=== PATIENT | male | born 1970 | race Caucasian/White ===

== ENCOUNTER 2017-02-06 17:49 | Emergency (ER) | payer SELFPAY ==
[~2017-02-06] VITALS: Ht 180.3 cm; Wt 86.2 kg
--- NOTE | 2017-02-06 17:53 | Emergency Room Report ---
History of Present Illness General Source: EMS Present Illness HPI 46YOM BIB[address]S from street, bystander called 911 Patient sitting on curb, intoxicated - found by Reportedly couldnt/didnt want to take home because "there might be something else going on." Patient not providing HPI currently EMS deny trauma Patient intermittently speaking en route, now asleep Vitals, glucose stable on scene Allergies: Coded Allergies: No Known Allergies (Unverified , 02/06/17) Patient History Past Medical History: unable to obtain Past Surgical History: unable to obtain Pertinent Family History: unable to obtain Social History: Reports: alcohol use Immunizations: UTD Reviewed Nursing Documentation: PMH: Agreed, PSxH: Agreed Review of Systems All Other Systems: negative except mentioned in HPI - Limited d/t ETOH intox Physical Exam Sp02 EP Interpretation: reviewed, normal General Appearance: normal inspection, lethargic, other - +AOB Head: normocephalic, atraumatic Eyes: bilateral eye other - Pupils sluggish ENT: normal ENT inspection, hearing grossly normal, normal voice, other - Blood in mouth, no obvious tongue lacerations Neck: normal inspection, full range of motion, supple, no bony tend Respiratory: normal inspection, lungs clear, normal breath sounds, no respiratory distress, no retraction, no wheezing Cardiovascular #1: regular rate, rhythm, no edema Gastrointestinal: normal inspection, normal bowel sounds, non tender, soft, no guarding, no hernia Genitourinary: no CVA tenderness Musculoskeletal: normal inspection, back normal, normal range of motion, Magnolia' s Sign negative Neurologic: normal inspection, alert, responsive, speech normal Psychiatric: normal inspection, judgement/insight normal, mood/affect normal Skin: normal inspection, normal color, no rash Medical Decision Making Diagnostic Impression: Primary Impression: Acute alcohol intoxication Qualified Codes: F10.929 - Alcohol use, unspecified with intoxication, unspecified ER Course VSS. Afebrile ETOH level 624 No other significant metabolic abnormalities Patient remained stable in the ER. Patient signed out to Dr. Tapia at 10 PM. Reevaluation pending sobriety Status: improved DAMION POON M.D. Feb 06, 2017 17:53
[2017-02-06 17:56] VITALS: BP 121/81
[2017-02-06 18:21] LABS: BASOPHILS % (AUTO) 1.7 % (0.0-2.0); LYMPHOCYTES % (AUTO) 40.3 % (20.0-45.0); MEAN CORPUSCULAR HEMOGLOBIN 33.8 PG (27.0-31.0); MEAN CORPUSCULAR HGB CONC 32.8 G/DL (32.0-36.0); MEAN CORPUSCULAR VOLUME 103 FL (80-99); MONOCYTES % (AUTO) 9.3 % (1.0-10.0); NEUTROPHILS % (AUTO) 46.7 % (45.0-75.0); PLATELET COUNT 206 K/UL (150-450); RED BLOOD COUNT 4.09 M/UL (4.70-6.10); WHITE BLOOD COUNT 5.3 K/UL (4.8-10.8)
[2017-02-06 18:38] LABS: ALANINE AMINOTRANSFERASE 17 U/L (12-78); ALBUMIN/GLOBULIN RATIO 0.9 (1.0-2.7); ANION GAP 9 mmol/L (5-15); ASPARTATE AMINO TRANSFERASE 26 U/L (15-37); CARBON DIOXIDE 29 MMOL/L (21-32); CHLORIDE 105 MMOL/L (98-107); CREATININE 0.9 MG/DL (0.55-1.30); GLOMERULAR FILTRATION RATE > 60 mL/min (>60); POTASSIUM 3.3 MMOL/L (3.5-5.1); SODIUM 143 MMOL/L (136-145); TOTAL PROTEIN 6.8 G/DL (6.4-8.2)
[2017-02-06 18:39] LABS: ALCOHOL 624 mg/dL
[2017-02-06 20:00] VITALS: BP 116/54
[2017-02-06 22:00] VITALS: BP 112/60
[2017-02-07] VITALS: BP 107/72
[2017-02-07 02:09] VITALS: BP 101/68
[2017-02-07] MEDS ORDERED: HYDROCODON-ACE1 EA15 ORAL (03:15)
[2017-02-07 04:15] VITALS: BP 119/72
--- NOTE | 2017-02-07 09:17 | Diagnostic Imaging Report ---
History: Pain. Technique: Frontal, lateral, views of the right humerus are provided. Comparison: No prior study is available for comparison. Findings: Patient is status post plate and screw fixation of the proximal and mid right humerus with extensive heterotopic bone formation surrounding severely comminuted chronic fracture of the right humerus. Bony mineralization appears reduced. No definite evidence of hardware complication or acute fracture. Impression: Status post plate and screw fixation of chronic comminuted humeral fractures with evidence of heterotopic bone formation. No definite evidence of hardware complication or acute fracture. Bony mineralization is reduced.
== END 2017-02-07 04:20 | disposition home or self-care (01) ==
LOC: EDBD 17:49 → EMR 19:44
DX: F10.129 Alcohol abuse with intoxication, unspecified (principal)
CPT/HCPCS: 36415; 73060; 80053; 85025; 99284; G0480; 80329

== ENCOUNTER 2017-02-13 13:47 | Emergency (ER) | payer OTHER ==
[~2017-02-13] VITALS: Ht 177.8 cm; Wt 65.8 kg
[~2017-02-13 13:47] MED LIST: HYDROCODON-ACE1 EA15 ORAL
[2017-02-13] MEDS ORDERED: UNOBMED (14:00)
[2017-02-13 14:10] VITALS: BP 119/76
--- NOTE | 2017-02-13 14:55 | Emergency Room Report ---
History of Present Illness General Chief Complaint: Medical Clearance Source: Patient (Nevaeh Dupree) Present Illness HPI 46-year-old male presents to the emergency department brought by police for suicidal threat to his . Patient states that he has been drinking vodka today and he had an argument with his and he picked up a knife and said he was going to kill himself. Patient reports history of depression with multiple failed SSRI medications. Patient states that he has not taken any medication for depression in over 8 years. He reports that he has been taking Ativan to calm himself down" patient reports past medical history of chronic pain in the right shoulder following surgery status post fractures. Patient states that he drinks alcohol regularly as a form of self administered pain management. Patient states that he is currently in between medical providers and he states his pain is currently managed. Patient reports one previous suicide attempt when he found out that his first cheated on him. Patient also reports previous psychiatric hospitalization because. She denies hallucinations, delusions, lamin, homicidal ideations. Patient denies history of TBI, abuse, or witnessing horrific events. Patient denies illicit drug use other than intermittent marijuana. 8/10 in severity right shoulder pain, no trauma. Denies CP, Palpitations, LOC, AMS, dizziness, Changes in Vision, Sensation, paresthesias, or a sudden severe headache. (Nevaeh Dupree) Allergies: Coded Allergies: OPIOIDS - MORPHINE ANALOGUES (Verified Allergy, Mild, Itching, 02/13/17) Uncoded Allergies: OPIOIDS (Allergy, Mild, 02/13/17) itchiness Patient History Past Medical History: see triage record Past Surgical History: none Pertinent Family History: none Social History: Reports: alcohol use, drug use - thc Reviewed Nursing Documentation: PMH: Agreed, PSxH: Agreed (Nevaeh Dupree) Nursing Documentation-PMH Hx Hypertension: Yes History Of Psychiatric Problem: Yes - DEPRESSION (Nevaeh Dupree) Review of Systems All Other Systems: negative except mentioned in HPI (Nevaeh Dupree) Physical Exam Vital Signs Date Time Temp Pulse Resp B/P (MAP) Pulse Ox O2 Delivery O2 Flow Rate FiO2 02/13/17 13:55 Room Air Sp02 EP Interpretation: reviewed, normal General Appearance: no apparent distress, alert, GCS 15, non-toxic Head: normocephalic, atraumatic Eyes: bilateral eye normal inspection, bilateral eye PERRL ENT: hearing grossly normal, normal voice, TMs + canals normal, moist mucus membranes Neck: full range of motion, supple/symm/no masses Respiratory: lungs clear, normal breath sounds, speaking full sentences Cardiovascular #1: regular rate, rhythm, no edema, normal capillary refill Gastrointestinal: normal bowel sounds, non tender, soft, no guarding, no rebound Rectal: deferred Musculoskeletal: back normal, gait/station normal, normal range of motion, tender - TTP to the Right shoulder, pain with ROM , however has FROM, no erythema, surgical scar noted. Neurologic: alert, oriented x3, responsive, motor strength/tone normal, sensory intact, normal gait, speech normal, no pronator Psychiatric: no delusions, depressed affect, other - judgement and memory unable to assess as pt. is clinically intoxicated. Skin: normal color, no rash, warm/dry, well hydrated (Nevaeh Dupree P.ABel) Medical Decision Making PA Attestation Dr. ordonez is my supervising Physician whom patient management has been discussed with. (Nevaeh Dupree P.ABel) Diagnostic Impression: Primary Impression: Behavioral disorder Additional Impressions: Alcohol intoxication Qualified Codes: F10.920 - Alcohol use, unspecified with intoxication, uncomplicated Suicidal behavior with attempted self-injury ER Course 46-year-old male presents to the emergency department brought by police for suicidal threat to his . Patient states that he has been drinking vodka today and he had an argument with his and he picked up a knife and said he was going to kill himself. Patient reports history of depression with multiple failed SSRI medications. Patient states that he has not taken any medication for depression in over 8 years. He reports that he has been taking Ativan to calm himself down" patient reports past medical history of chronic pain in the right shoulder following surgery status post fractures. Patient states that he drinks alcohol regularly as a form of self administered pain management. Patient states that he is currently in between medical providers and he states his pain is currently managed. Patient reports one previous suicide attempt when he found out that his first cheated on him. Patient also reports previous psychiatric hospitalization because. She denies hallucinations, delusions, lamin, homicidal ideations. Patient denies history of TBI, abuse, or witnessing horrific events. Patient denies illicit drug use other than intermittent marijuana. 8/10 in severity right shoulder pain, no trauma. Denies CP, Palpitations, LOC, AMS, dizziness, Changes in Vision, Sensation, paresthesias, or a sudden severe headache. Patient was placed on 5150 hold by [employer] Ddx considered but are not limited to OD, SI/HI, psychosis, UTI, intoxication just to name a few. Vital signs: are WNL, pt. is afebrile H&PE are most consistent with behavioral/mental health issue ORDERS: -CBC, CMP: Unremarkable -UA: negative for infection see results attached. -UDS: POSITIVE for BENZO's -Salicylates and Acetaminophen - no acute intoxication. - Serum ETOH: 383 ED INTERVENTIONS: - 1 L normal saline bolus -Sitter at bedside has been ordered -Motrin PO DISPOSITION: Pt. is medically cleared currently awaiting PET team evaluation for their psychiatric transfer. Labs Test 02/13/17 14:40 White Blood Count 3.1 K/UL (4.8-10.8) Red Blood Count 4.57 M/UL (4.70-6.10) Hemoglobin 15.2 G/DL (14.2-18.0) Hematocrit 46.0 % (42.0-52.0) Mean Corpuscular Volume 101 FL (80-99) Mean Corpuscular Hemoglobin 33.3 PG (27.0-31.0) Mean Corpuscular Hemoglobin Concent 33.1 G/DL (32.0-36.0) Red Cell Distribution Width 12.8 % (11.6-14.8) Platelet Count 166 K/UL (150-450) Mean Platelet Volume 5.8 FL (6.5-10.1) Neutrophils (%) (Auto) % (45.0-75.0) Lymphocytes (%) (Auto) % (20.0-45.0) Monocytes (%) (Auto) % (1.0-10.0) Eosinophils (%) (Auto) % (0.0-3.0) Basophils (%) (Auto) % (0.0-2.0) Differential Total Cells Counted 100 Neutrophils % (Manual) 50 % (45-75) Lymphocytes % (Manual) 44 % (20-45) Monocytes % (Manual) 4 % (1-10) Eosinophils % (Manual) 2 % (0-3) Basophils % (Manual) 0 % (0-2) Band Neutrophils 0 % (0-8) Platelet Estimate Adequate Platelet Morphology Normal Red Blood Cell Morphology Normal Urine Color Pale yellow Urine Appearance Clear Urine pH 8 (4.5-8.0) Urine Specific Stigler 1.020 (1.005-1.035) Urine Protein Negative (NEGATIVE) Urine Glucose (UA) Negative (NEGATIVE) Urine Ketones Negative (NEGATIVE) Urine Occult Blood Negative (NEGATIVE) Urine Nitrite Negative (NEGATIVE) Urine Bilirubin Negative (NEGATIVE) Urine Urobilinogen Normal MG/DL (0.0-1.0) Urine Leukocyte Esterase Negative (NEGATIVE) Sodium Level 146 MMOL/L (136-145) Potassium Level 3.7 MMOL/L (3.5-5.1) Chloride Level 107 MMOL/L (98-107) Carbon Dioxide Level 29 MMOL/L (21-32) Anion Gap 10 mmol/L (5-15) Blood Urea Nitrogen 5 mg/dL (7-18) Creatinine 0.8 MG/DL (0.55-1.30) Estimat Glomerular Filtration Rate > 60 mL/min (>60) Glucose Level 90 MG/DL (74-106) Calcium Level 8.5 MG/DL (8.5-10.1) Total Bilirubin 0.8 MG/DL (0.2-1.0) Aspartate Amino Transf (AST/SGOT) 55 U/L (15-37) Alanine Aminotransferase (ALT/SGPT) 22 U/L (12-78) Alkaline Phosphatase 107 U/L (46-116) Total Protein 7.2 G/DL (6.4-8.2) Albumin 3.5 G/DL (3.4-5.0) Globulin 3.7 g/dL Albumin/Globulin Ratio 0.9 (1.0-2.7) Salicylates Level < 2.0 ug/mL (2.8-20) Urine Opiates Screen Negative (NEGATIVE) Acetaminophen Level < 10 MCG/ML (10-30) Urine Barbiturates Screen Negative (NEGATIVE) Phencyclidine (PCP) Screen Negative (NEGATIVE) Urine Amphetamines Screen Negative (NEGATIVE) Urine Benzodiazepines Screen Positive (NEGATIVE) Urine Cocaine Screen Negative (NEGATIVE) Urine Marijuana (THC) Screen Negative (NEGATIVE) Serum Alcohol 383 mg/dL (Nevaeh Dupree) ER Course Patient presents with alcohol intoxication and suicidal thoughts. He has depression also. He is placed into a 50 by police. He slept through the night without any problem. I gave him Librium for alcohol withdrawal. Awaiting psychiatric placement. (THEO CONWAY M.D.) ER Course The patient was noted to have improvement in alcohol intoxication. Patient was given Librium for withdrawal. The patient was discussed with [facility] [place] by staff and he was accepted as transfer for higher level of care. (Kris Yañez) Last Vital Signs Date Time Temp Pulse Resp B/P (MAP) Pulse Ox O2 Delivery O2 Flow Rate FiO2 02/13/17 13:55 Room Air (Nevaeh Dupree) Status: improved (THEO CONWAY M.D.) Disposition: XFER TO PSYCH HOSP/UNIT Condition: Stable Signed Out To: Dr. Conway (Nevaeh Dupree) Referrals: NOT CHOSEN ELAINE/,REFERRING (PCP) Nevaeh Dupree Feb 13, 2017 14:55 THEO CONWAY M.D. Feb 14, 2017 03:38 Kris Yañez Feb 14, 2017 14:05
[2017-02-13 15:14] LABS: MEAN CORPUSCULAR HEMOGLOBIN 33.3 PG (27.0-31.0); MEAN CORPUSCULAR HGB CONC 33.1 G/DL (32.0-36.0); MEAN CORPUSCULAR VOLUME 101 FL (80-99); MEAN PLATELET VOLUME 5.8 FL (6.5-10.1); PLATELET COUNT 166 K/UL (150-450); RED BLOOD COUNT 4.57 M/UL (4.70-6.10); RED CELL DISTRIBUTION WIDTH 12.8 % (11.6-14.8); WHITE BLOOD COUNT 3.1 K/UL (4.8-10.8)
[2017-02-13 15:27] LABS: APPEARANCE,URINE CLEAR; KETONES,URINE NEGATIVE (NEGATIVE); LEUKOCYTE ESTERASE ,URINE NEGATIVE (NEGATIVE); NITRITE,URINE NEGATIVE (NEGATIVE); PH,URINE 8 (4.5-8.0); PROTEIN,URINE NEGATIVE (NEGATIVE); UROBILINOGEN,URINE NORMAL MG/DL (0.0-1.0)
[2017-02-13 15:28] LABS: ANION GAP 10 mmol/L (5-15); CALCIUM 8.5 MG/DL (8.5-10.1); CARBON DIOXIDE 29 MMOL/L (21-32); CHLORIDE 107 MMOL/L (98-107); CREATININE 0.8 MG/DL (0.55-1.30); GLOMERULAR FILTRATION RATE > 60 mL/min (>60); POTASSIUM 3.7 MMOL/L (3.5-5.1); SODIUM 146 MMOL/L (136-145)
[2017-02-13 15:37] LABS: ALANINE AMINOTRANSFERASE 22 U/L (12-78); ALBUMIN/GLOBULIN RATIO 0.9 (1.0-2.7); ALCOHOL 383 mg/dL; ASPARTATE AMINO TRANSFERASE 55 U/L (15-37); TOTAL PROTEIN 7.2 G/DL (6.4-8.2)
[2017-02-13 15:59] LABS: ACETAMINOPHEN < 10 MCG/ML (10-30)
[2017-02-13 17:12] LABS: BAND NEUTROPHILS % (MANUAL) 0 % (0-8); BASOPHILS % (MANUAL) 0 % (0-2); EOSINOPHILS % (MANUAL) 2 % (0-3); LYMPHOCYTES % (MANUAL) 44 % (20-45); NEUTROPHILS % (MANUAL) 50 % (45-75); PLATELET ESTIMATE ADEQUATE; PLATELET MORPHOLOGY NORMAL; TOTAL CELLS COUNTED 100
[2017-02-13] MEDS ORDERED: chlordiazePOXIDE 25mg Cap ORAL ONE (22:00)
[2017-02-13 23:30] VITALS: BP 122/89
[2017-02-14 03:30] VITALS: BP 119/70
[2017-02-14 07:15] VITALS: BP 163/78
[2017-02-14] MEDS: chlordiazePOXIDE 25mg Cap ORAL PRN ×2 (07:37→14:17)
[2017-02-14 14:00] VITALS: BP 156/88
[2017-02-14] MEDS ORDERED: cloNIDine 0.2mg Tab ONE (15:19)
[2017-02-14 15:25] VITALS: BP 154/93
[2017-02-14] MEDS ORDERED: cloNIDine 0.2mg Tab ORAL ONE (15:30)
== END 2017-02-14 15:30 ==
LOC: EMR 14:11
DX: F91.8 Other conduct disorders (principal); F10.129 Alcohol abuse with intoxication, unspecified; F32.9 Major depressive disorder, single episode, unspecified; I10 Essential (primary) hypertension
CPT/HCPCS: 36415; 80053; 80307; 81003; 85007; 85025; 96374; 99284; G0480; 80329